=== PATIENT | female | born 1950 | race Caucasian/White ===

== ENCOUNTER 2024-02-29 11:00 | Emergency (ER) | payer OTHER, BC ==
[~2024-02-29] VITALS: Ht 162.6 cm; Wt 51.3 kg
[2024-02-29 11:13] VITALS: BP_SYST 174; PULSE 78; RESP 20; TEMP 97.6; O2SAT 98
[2024-02-29] MEDS ORDERED: IBUPROFEN 600 MG TABLET PO ONE (12:00)
[2024-02-29] MEDS ORDERED: IBUP-1969 PO (12:00)
[2024-02-29] MEDS ORDERED: LIDO1ADH91 TD (13:33)
== END 2024-02-29 13:44 | disposition home or self-care (01) ==
LOC: SED 11:00
DX: S22.32XA Fracture of one rib, left side, initial encounter for closed fracture (principal); Z88.1 Allergy status to other antibiotic agents; Z79.899 Other long term (current) drug therapy; W18.39XA Other fall on same level, initial encounter; Y93.89 Activity, other specified; Y92.89 Other specified places as the place of occurrence of the external cause; Y99.8 Other external cause status
CPT/HCPCS: 71100; 99283